=== PATIENT | male | born 1995 | race Two or more races ===

== ENCOUNTER 2020-08-14 14:06 | Emergency (ER) | payer MEDICAID, OTHER ==
[~2020-08-14] VITALS: Ht 175.3 cm; Wt 71.5 kg
--- NOTE | 2020-08-14 14:50 | NUR ---
BREAK RN: PT AMBULATED TO ROOM FROM TRIAGE. PT STATED THAT EARLIER TODAY HE FELL OFF THE BACK OF HIS WORK TRUCK, LANDING ON HIS TOOLS. PT STATED THAT THE TOOLS WENT INTO HIS LEFT LOWER BACK. PT STATED THAT HE HAS SEVERE LOW BACK/FLANK PAIN AND IT HURTS TO TAKE A DEEP BREATH. PT DENIES ANY NUMBNESS/ TINGLING OR PAIN ANYWHERE ELSE. PT DENIES HITTING HEAD OR LOC. NO BRUISING OR ABRASIONS NOTED TO BACK.
[2020-08-14] MEDS ORDERED: SODIUM CHLORIDE FLUSH 10ML SYR IVF ONE (15:00)
--- NOTE | 2020-08-14 15:05 | NUR ---
Task RN: pt here for L posterior back pain after a fall from his work truck this morning and landing on a concrete finishing tool that was located on his belt. pt reports that the tool boke when he fell on it. pt has no bruising to back, but is very tender to palpation. pt reports that it is painful to take a deep breath. pt denies head injuy or LOC and states that when he fell he was wearing his hard hat. pt is currently sitting up on [facility]. family at bedside. pt denies any othe injuries. denies hematuria
--- NOTE | 2020-08-14 15:15 | NUR ---
ice pack applied or comfort and positioning for comfort. report to Marlena CABA
[2020-08-14 15:24] LABS: BASOPHILS % (AUTO) 1 % (0-1); EOSINOPHILS % (AUTO) 2 % (1-7); LYMPHOCYTES % (AUTO) 27 % (22-44); MEAN CORPUSCULAR HGB CONC 34.4 g/dL (33.2-36.2); MEAN PLATELET VOLUME 7.5 fL (7.4-10.4); MONOCYTES % (AUTO) 5 % (2-9); NEUTROPHILS % (AUTO) 65 % (42-75); PLATELET COUNT 213 x10^3/uL (130-400); RED BLOOD COUNT 5.01 x10^6/uL (4.38-5.82); RED CELL DISTRIBUTION WIDTH 13.3 % (9.4-14.8)
[2020-08-14 15:25] LABS: MD NO
[2020-08-14 15:32] LABS: ALBUMIN 4.2 g/dL (3.4-5.0); ANION GAP 5 mmol/L (5-15); CALCIUM 9.2 mg/dL (8.5-10.1); CHLORIDE 108 mmol/L (98-107); CREATININE 0.83 mg/dL (0.7-1.3)
--- NOTE | 2020-08-14 15:46 | NUR ---
OF THE FLOOR TO CT
[2020-08-14] MEDS ORDERED: OMNIPAQUE 350 MG/ML, 100ML BOTTLE ONE (15:59)
--- NOTE | 2020-08-14 16:12 | NUR ---
PT BACK FROM CT
--- NOTE | 2020-08-14 17:39 | NUR ---
PT REC'VD DISCHARGE INSTRUCTIONS AND EDUCATION. PT HAD NO FURTHER QUESTIONS.
[2020-08-14 17:40] VITALS: BP 103/65
--- NOTE | 2020-08-14 17:48 | NUR ---
PT AMBULATED TO DC AREA WITH FAMILY, STEADY GAIT
== END 2020-08-14 17:50 | disposition home or self-care (01) ==
LOC: ED 17:44
DX: S20.212A Contusion of left front wall of thorax, initial encounter (principal); S30.1XXA Contusion of abdominal wall, initial encounter; W01.0XXA Fall on same level from slipping, tripping and stumbling without subsequent striking against object, initial encounter; Y93.89 Activity, other specified; Y92.410 Unspecified street and highway as the place of occurrence of the external cause; Y99.8 Other external cause status
CPT/HCPCS: 36415; 71101; 74177; 80048; 82040; 85025; 99285; Q9967